=== PATIENT | male | born 1935 | race Caucasian/White ===

== ENCOUNTER → 2016-06-15 | Outpatient (CLI) | payer BC ==
[2016-06-15 13:02] LABS: ESTIMATED AVERAGE GLUCOSE 163 mg/dl; HA1C FLAG Normal (Normal)
== END | disposition home or self-care (01) ==
LOC: C.LABPVFM 10:04
PROVIDERS: ATTEND Nurse Practitioner Adult Health
DX: E10.9 Type 1 diabetes mellitus without complications (principal)

== ENCOUNTER → 2016-11-02 | Outpatient (CLI) | payer BC ==
[2016-11-02 12:31] LABS: ESTIMATED AVERAGE GLUCOSE 151 mg/dl; HA1C FLAG Normal (Normal)
[2016-11-02 13:04] LABS: RATIO 29.2 mcg/mg (0-30.0)
[2016-11-02 13:05] LABS: ALT/SGPT 24 U/L (12-78); AST/SGOT 27 U/L (15-37); BLOOD UREA NITROGEN 22 mg/dl (7-18); BUN/CREATININE RATIO 20.4 (10-20); CALCIUM 8.6 mg/dl (8.5-10.1); CARBON DIOXIDE 31 mmol/L (21-32); CHLORIDE 102 mmol/L (98-107); GLUCOSE 181 mg/dl (70-99); POTASSIUM 3.4 mmol/L (3.5-5.1); SODIUM 139 mmol/L (136-145)
[2016-11-02 13:16] LABS: ALKALINE PHOSPHATASE 66 U/L (45-117); CHOLESTEROL 132 mg/dl (0-200); CHOLESTEROL/HDL RATIO 2.3; HDL CHOLESTEROL 57 mg/dl; LDL CHOLESTEROL CALCULATED 55 mg/dl; TRIGLYCERIDES 102 mg/dl (0-150); VERY LOW DENSITY LIPOPROT CALC 20 mg/dl
== END | disposition home or self-care (01) ==
LOC: C.LABPVFM 10:14
PROVIDERS: ATTEND Nurse Practitioner Adult Health
DX: E03.9 Hypothyroidism, unspecified (principal); E10.9 Type 1 diabetes mellitus without complications; I10 Essential (primary) hypertension

== ENCOUNTER → 2016-12-16 | Outpatient (CLI) | payer BC ==
[2016-12-16 13:20] LABS: BLOOD UREA NITROGEN 18 mg/dl (7-18); BUN/CREATININE RATIO 18.2 (10-20); CALCIUM 8.9 mg/dl (8.5-10.1); CARBON DIOXIDE 31 mmol/L (21-32); CHLORIDE 100 mmol/L (98-107); GLUCOSE 259 mg/dl (70-99); POTASSIUM 3.2 mmol/L (3.5-5.1); SODIUM 139 mmol/L (136-145)
== END | disposition home or self-care (01) ==
LOC: C.LABPVFM 09:13
PROVIDERS: ATTEND Nurse Practitioner Adult Health
DX: I10 Essential (primary) hypertension (principal); E10.9 Type 1 diabetes mellitus without complications

== ENCOUNTER → 2017-01-10 | Outpatient (CLI) | payer BC ==
--- NOTE | 2017-01-10 12:37 | DIAGNOSTIC IMAGING REPORT ---
RENAL ULTRASOUND HISTORY: I10 Hypertension E10.9 Type 1 diabetes mellitus with long-term cu COMPARISON: None. FINDINGS: Right kidney: 10.7 cm. No hydronephrosis. Normal corticomedullary differentiation and cortical thickness. A 1.1 cm cyst. A 1.2 cm hyperechoic focus within the upper pole the right kidney. Left kidney: 11.3 cm. No hydronephrosis. Normal corticomedullary differentiation and cortical thickness. Bladder: Bladder wall slightly trabeculated. Bilateral ureteral jets are identified. The prostate is enlarged measuring up to 6.2 cm. IMPRESSION: 1. No hydronephrosis. 2. The bladder wall is slightly trabeculated. 3. A 1.1 cm right renal cyst. 4. A 1.2 cm hyperechoic focus within the upper pole of the right kidney. This may represent a small fat-containing lesion such as an angiomyolipoma or focal cortical scarring . 5. Prostatomegaly. Electronically signed by: Alberto Chase M.D. 01/10/2017 12:36 PM Dictated Date/Time: 01/10/2017 12:33 PM
[2017-01-10 14:52] LABS: HEMATOCRIT 40.8 % (42-52); MEAN CELL VOLUME 86.6 fL (80-100); MEAN CORPUSCULAR HEMOGLOBIN 31.2 pg (25-34); PLATELET COUNT 236 K/uL (130-400); RED BLOOD COUNT 4.71 M/uL (4.7-6.1); WHITE BLOOD COUNT 5.52 K/uL (4.8-10.8)
[2017-01-10 15:13] LABS: URINE APPEARANCE CLEAR (CLEAR); URINE BILIRUBIN NEG (NEG); URINE COLOR YELLOW; URINE EPITHELIAL CELL AUTO 0-5 /lpf (0-5); URINE NITRITE NEG (NEG); URINE PH 7.5 (4.5-7.5); URINE SPECIFIC GRAVITY 1.013 (1.000-1.030); UROBILINOGEN NEG (NEG)
[2017-01-10 15:18] LABS: MANUAL MICROSCOPIC REQUIRED? NO; REVIEW REQ? NO
[2017-01-10 15:24] LABS: BLOOD UREA NITROGEN 23 mg/dl (7-18); BUN/CREATININE RATIO 21.1 (10-20); CALCIUM 9.6 mg/dl (8.5-10.1); CARBON DIOXIDE 32 mmol/L (21-32); CHLORIDE 97 mmol/L (98-107); GLUCOSE 222 mg/dl (70-99); PHOSPHORUS 1.7 mg/dl (2.5-4.9); POTASSIUM 3.5 mmol/L (3.5-5.1); SODIUM 135 mmol/L (136-145)
[2017-01-10 15:34] LABS: URINE PROTIEN/CREAT RATIO 0.3 (0-0.2); URINE TOTAL PROTEIN 7.8 mg/dl (0-11.9)
== END | disposition home or self-care (01) ==
LOC: C.ULTR 11:56
PROVIDERS: ATTEND Internal Medicine Nephrology
DX: E10.9 Type 1 diabetes mellitus without complications (principal); E87.6 Hypokalemia; I12.9 Hypertensive chronic kidney disease with stage 1 through stage 4 chronic kidney disease, or unspecified chronic kidney disease; N18.9 Chronic kidney disease, unspecified; R80.9 Proteinuria, unspecified

== ENCOUNTER → 2017-04-12 | Outpatient (CLI) | payer BC ==
[2017-04-12 13:12] LABS: HEMOGLOBIN A1C 6.9 % (4.5-5.6)
== END | disposition home or self-care (01) ==
LOC: C.LABPVFM 10:31
PROVIDERS: ATTEND Nurse Practitioner Adult Health
DX: E03.9 Hypothyroidism, unspecified (principal); E10.29 Type 1 diabetes mellitus with other diabetic kidney complication; Z79.4 Long term (current) use of insulin; M54.9 Dorsalgia, unspecified

== ENCOUNTER → 2017-06-24 | Outpatient (CLI) | payer BC ==
[2017-06-24 12:23] LABS: HEMATOCRIT 41.3 % (42-52); HEMOGLOBIN 14.2 g/dL (14.0-18.0); MEAN CELL VOLUME 86.8 fL (80-100); MEAN CORPUSCULAR HEMOGLOBIN 29.8 pg (25-34); MEAN CORPUSCULAR HGB CONC 34.4 g/dl (32-36); MEAN PLATELET VOLUME 9.7 fL (7.4-10.4); PLATELET COUNT 245 K/uL (130-400); RED CELL DISTRIBUTION WIDTH CV 13.1 % (11.5-14.5); RED CELL DISTRIBUTION WIDTH SD 41.7 fL (36.4-46.3); WHITE BLOOD COUNT 4.52 K/uL (4.8-10.8)
[2017-06-24 13:34] LABS: ALBUMIN 3.7 gm/dl (3.4-5.0); BLOOD UREA NITROGEN 21 mg/dl (7-18); CALCIUM 8.9 mg/dl (8.5-10.1); CARBON DIOXIDE 32 mmol/L (21-32); CREATININE 1.21 mg/dl (0.60-1.40); GLUCOSE 209 mg/dl (70-99); POTASSIUM 2.8 mmol/L (3.5-5.1); SODIUM 134 mmol/L (136-145)
[2017-06-24 13:35] LABS: PHOSPHORUS 1.8 mg/dl (2.5-4.9)
== END | disposition home or self-care (01) ==
LOC: C.LABPVFM 10:41
PROVIDERS: ATTEND Internal Medicine Nephrology
DX: I10 Essential (primary) hypertension (principal); E10.29 Type 1 diabetes mellitus with other diabetic kidney complication; R60.9 Edema, unspecified; N18.9 Chronic kidney disease, unspecified; R80.9 Proteinuria, unspecified

== ENCOUNTER → 2017-08-29 | Outpatient (CLI) | payer BC ==
[2017-08-29 13:25] LABS: ALBUMIN 3.9 gm/dl (3.4-5.0); BLOOD UREA NITROGEN 23 mg/dl (7-18); CALCIUM 8.7 mg/dl (8.5-10.1); CARBON DIOXIDE 30 mmol/L (21-32); CREATININE 1.12 mg/dl (0.60-1.40); GLUCOSE 208 mg/dl (70-99); PHOSPHORUS 1.8 mg/dl (2.5-4.9); POTASSIUM 3.1 mmol/L (3.5-5.1); SODIUM 136 mmol/L (136-145)
[2017-08-29 13:54] LABS: HEMOGLOBIN A1C 6.7 % (4.5-5.6)
== END | disposition home or self-care (01) ==
LOC: C.LABPVFM 10:44
PROVIDERS: ATTEND Internal Medicine Nephrology
DX: E10.29 Type 1 diabetes mellitus with other diabetic kidney complication (principal); I10 Essential (primary) hypertension; R80.9 Proteinuria, unspecified; E87.6 Hypokalemia

== ENCOUNTER → 2017-11-29 | Outpatient (CLI) | payer BC ==
[2017-11-29 12:52] LABS: HEMATOCRIT 39.6 % (42-52); HEMOGLOBIN 13.6 g/dL (14.0-18.0); MEAN CELL VOLUME 87.8 fL (80-100); MEAN CORPUSCULAR HEMOGLOBIN 30.2 pg (25-34); MEAN CORPUSCULAR HGB CONC 34.3 g/dl (32-36); MEAN PLATELET VOLUME 10.4 fL (7.4-10.4); PLATELET COUNT 226 K/uL (130-400); RED CELL DISTRIBUTION WIDTH CV 12.9 % (11.5-14.5); RED CELL DISTRIBUTION WIDTH SD 41.5 fL (36.4-46.3); WHITE BLOOD COUNT 3.98 K/uL (4.8-10.8)
[2017-11-29 13:16] LABS: HEMOGLOBIN A1C 6.7 % (4.5-5.6)
[2017-11-29 14:22] LABS: ALBUMIN 3.7 gm/dl (3.4-5.0); BLOOD UREA NITROGEN 20 mg/dl (7-18); CALCIUM 8.7 mg/dl (8.5-10.1); CARBON DIOXIDE 29 mmol/L (21-32); CREATININE 1.11 mg/dl (0.60-1.40); GLUCOSE 294 mg/dl (70-99); PHOSPHORUS 2.1 mg/dl (2.5-4.9); POTASSIUM 3.4 mmol/L (3.5-5.1); SODIUM 135 mmol/L (136-145)
== END | disposition home or self-care (01) ==
LOC: C.LABPVFM 10:15
PROVIDERS: ATTEND Internal Medicine Nephrology
DX: I10 Essential (primary) hypertension (principal); E03.9 Hypothyroidism, unspecified; E10.29 Type 1 diabetes mellitus with other diabetic kidney complication; Z79.4 Long term (current) use of insulin; R80.9 Proteinuria, unspecified

== ENCOUNTER 2022-12-06 13:51 | Observation (INO) ==
--- NOTE | 2022-12-06 13:54 | ED Triage Note ---
Date of Service December 06, 2022 History of Present Illness This patient was briefly evaluated while in triage. An abbreviated physical exam was performed. This patient is a 87-year-old Male who presents to the ED for evaluation of chest pain. Pt. was referred from PCP at [facility] for chest pain that stared last night. Pt. reports left sided chest pain. Is still having left sided chest pain at present. Rates pain 4/10at present. Pt. states he was not doing anything when pain started. No SOB. No history of heart disease. Physical Exam VITALS: Vitals are noted on the nurse's note and reviewed by myself. GENERAL: This is an 87 year old male, in no acute distress, nondiaphoretic, well-developed well-nourished. SKIN: No obvious rashes, edema, erythema HEAD: Normocephalic atraumatic. EYES: Conjunctivae without injection, sclerae without icterus. NECK: No JVD. LUNGS: No retractions or accessory muscle use. MUSCULOSKELETAL: Normal gait. NEURO: Patient was alert and oriented to person place and time. No focal neurological deficits. Initial orders for labs and / or imaging were placed and patient was placed in the waiting area until a bed is available. Please see further documentation for the full ED course. MDM / Impression Impression Impression: Chest pain Impression: Chest pain Qualifiers: Chest pain type: unspecified Qualified Code(s): R07.9 - Chest pain, unspecified
[2022-12-06 14:26] LABS: Basophils # (auto) 0.06 K/uL (0.00-0.20); Basophils % (auto) 1.2 %; Eosinophils # (auto) 0.14 K/uL (0.00-0.50); Eosinophils % (auto) 2.9 %; Hematocrit (blood only) 39.6 % (42.0-52.0); Hemoglobin 13.9 g/dl (14.0-18.0); Immature Granulocytes # (auto) 0.01 K/uL (0.01-0.20); Immature Granulocytes % (auto) 0.2 %; Lymphocytes % (auto) 14.4 %; Mean Corpuscular Hemoglobin 30.5 pg (25.0-34.0); Mean Corpuscular Hgb Conc 35.1 g/dL (32.0-36.0); Mean Platelet Volume 9.8 fL (9.4-12.4); Monocytes # (auto) 0.35 K/uL (0.11-0.59); Monocytes % (auto) 7.2 %; Neutrophils # (auto) 3.61 K/uL (1.40-6.50); Neutrophils % (auto) 74.1 %; Platelet Count 217 K/uL (130-400); RDW Coefficient of Variation 12.9 % (11.5-14.5); RDW Standard Deviation 40.7 fL (36.4-46.3); Red Blood Count 4.55 M/uL (4.70-6.10); White Blood Count 4.87 K/ul (4.8-10.8)
[2022-12-06 14:53] LABS: Albumin Globulin Ratio 1.4 (0.9-2); Albumin Level 4.4 gm/dl (3.4-5.0); BUN Creatinine Ratio 17.7 (10-20); Bilirubin,Total 1.1 mg/dl (0.2-1.0); Calcium 9.3 mg/dl (8.6-10.3); Creatinine Clr Calc Pharmacy 51.5 ml/min; Est GFR (African American) 81.5 ml/min; Est GFR (Non-African American) 70.3 ml/min; Globulin 3.1 gm/dl (2.5-4.0); Potassium 3.9 mmol/L (3.5-5.1); Total Protein 7.5 gm/dl (6.0-8.3)
[2022-12-06 14:59] LABS: Troponin I High Sensitivity 3.8 pg/ml (0-20)
[2022-12-06 15:05] LABS: Partial Thromboplastin Time 27.9 Seconds (21.0-31.0); Prothrombin Time 10.8 Seconds (9.0-12.0)
[2022-12-06] MEDS ORDERED: ASPIRIN CHEW 324 MG ONE (15:18)
[2022-12-06] MEDS ORDERED: NITROGLYCERIN SL 0.4 MG/TAB TAB ONE (15:18)
--- NOTE | 2022-12-06 15:27 | Emergency Department Note ---
History of Present Illness General Chief Complaint: Chest Pain Stated Complaint: HEART CONCERNS, DOCTOR CALLED IN FROM [facility] Time Seen by Provider: 12/06/22 15:10 History of Present Illness Provider Complaint: chest pain Onset (ago): day(s) 1 Duration: intermittent and improved Onset: during rest Pain Location: left chest Severity: moderate Maximum Pain Intensity: 4 Current Pain Intensity: 3 Quality: + aching and + dull Relieved By: + nothing Exacerbated By: + nothing Context: no recent illness, no recent surgery, no recent immobilization, no recent travel, no trauma/injury, no new medications or no history of DVT/PE Associated symptoms: no nausea, no vomiting, no diaphoresis, no dyspnea, no syncope, no palpitations, no fever, no cough or no leg swelling Home Medications Medication Instructions Recorded Confirmed Type aspirin 81 mg tablet,delayed 81 mg PO QAM 06/21/18 12/06/22 History release (Aspir-Low) cholecalciferol (vitamin D3) 25 1,000 unit PO QAM 06/21/18 12/06/22 History mcg (1,000 unit) tablet (Vitamin D3) multivitamin with iron-mineral PO DAILY 12/25/18 12/06/22 History [Centrum] blood sugar diagnostic (Contour #[id number] ea 01/09/19 12/06/22 Rx Next Test Strips) glucagon (human recombinant) 1 mg 1 mg IM PRN PRN hypoglycemia #2 ea 01/18/19 12/06/22 Rx solution for injection (Glucagon Emergency Kit) potassium chloride 20 mEq 40 meq PO DAILY #180 tabs 01/15/20 12/06/22 Rx tablet,extended release insulin glargine 100 unit/mL See Rx Instructions .Route 12/08/20 12/06/22 Rx subcutaneous solution (Lantus .COMPLEX #10 mL U-100 Insulin) trazodone 50 mg tablet 50 mg PO HS #90 tabs 10/26/21 12/06/22 Rx dutasteride 0.5 mg capsule 0.5 mg PO DAILY #90 caps 03/16/22 12/06/22 Rx (Avodart) silodosin 8 mg capsule 8 mg PO DAILY #90 caps 03/16/22 12/06/22 Rx Novolog U-100 Insulin aspart 100 See Rx Instructions subcut DAILY 05/14/22 12/06/22 Rx unit/mL subcutaneous solution #100 mL (insulin aspart U-100) losartan 100 mg tablet 100 mg PO QAM #90 tabs 09/07/22 12/06/22 Rx hydrochlorothiazide 25 mg tablet 25 mg PO DAILY #90 tabs 10/18/22 12/06/22 Rx Synthroid 125 mcg tablet 125 mcg PO QAM 90 days #90 tabs 11/09/22 12/06/22 Rx (levothyroxine) amlodipine 5 mg tablet 10 mg PO DAILY 11/11/22 12/06/22 History Allergies Allergy/AdvReac Type Severity Reaction Status Date / Time clonazepam Allergy Intermediate NAUSEA,HYPE Verified 12/06/22 12:35 R hydrocodone Allergy Mild NAUSEA Verified 12/06/22 12:35 DEMEROL Allergy Intermediate Hives Uncoded 12/06/22 12:35 Past Med/Surg History Medical History (Updated 12/06/22 @ 23:34 by Brent Hernandez MD) BPH with obstruction/lower urinary tract symptoms Cervicalgia Edema History of flexible sigmoidoscopy Hypokalemia Insomnia Insulin pump in place Macular degeneration LASER INJECTIONS Peripheral neuropathy Positive colorectal cancer screening using Cologuard test SNHL (sensorineural hearing loss) Surgical History Cornea transplant recipient RT/LEFT H/O hemorrhoidectomy AND FISSURE REPAIR History of tonsillectomy History of tooth extraction Hx of prostate biopsy BENIGN Family History Brother Family history of diabetes mellitus Mother Family history of diabetes mellitus Denies family history of Ovarian cancer Prostate cancer Myocardial infarction Breast cancer Colorectal cancer Social History Smoking Status: Former smoker Tobacco Type: Cigarettes Smoking End Date: 1964; Second Hand Exposure: No; Do You Dip or Chew Tobacco: Yes (OCCASIONAL USE); Hx Alcohol Use: No Hx Substance Use: No Preferred Language: Tajik Communication Ability: Effective Visual Impairment: Limited Hearing Ability: Use of Hearing Aid Lining Vamper Required: No Beliefs That Will Affect Care: None marital status: Current Living Situation: Spouse Current Living Situation Comment: [facility]ry current occupational status: retired How many Children do You have: 3 Feels Safe at Home: Yes Safety Concerns: Feels Safe At This Time Childhood Exposure to Second-Hand Smoke: No Diet: regular caffeine: Yes during the past year weight has: remained stable Dental Care, Regularly: Yes Physical Activity Frequency: Does not Exercise Seatbelt Use: always Sunscreen Use: Yes Assistive Devices: Denture - Upper, Denture - Lower, Glasses and Hearing Aid - Bilateral Physical Exam Vital Signs Vital Signs - 24 hr 12/06/22 13:52 12/06/22 15:56 12/06/22 15:56 Temperature 36.6 C Temperature Source Oral Pulse Rate 73 Pulse Rate [Apical] 59 L Pulse Rhythm [Apical] Regular Pulse Strength [Apical] Normal Respiratory Rate 18 16 Respiratory Effort / Characteristics Non-Labored Respiratory Depth Normal Respiratory Pattern Regular Blood Pressure 207/90 H Blood Pressure [Left Arm] 166/76 H Blood Pressure Mean 129 Blood Pressure Mean [Left Arm] 106 Pulse Oximetry 99 100 Oxygen Delivery Method Room Air Room Air Room Air Sepsis Recent Fever Within 48 Hours No Sepsis New/Unexplained Change in Mental Status No Sepsis Action Taken by Nursing No Action Required 12/06/22 15:56 12/06/22 15:28 Temperature Temperature Source Pulse Rate 66 Pulse Rate [Apical] Pulse Rhythm [Apical] Pulse Strength [Apical] Respiratory Rate Respiratory Effort / Characteristics Respiratory Depth Respiratory Pattern Blood Pressure Blood Pressure [Left Arm] Blood Pressure Mean Blood Pressure Mean [Left Arm] Pulse Oximetry 99 Oxygen Delivery Method Room Air Sepsis Recent Fever Within 48 Hours Sepsis New/Unexplained Change in Mental Status Sepsis Action Taken by Nursing Physical Exam GENERAL: oriented to person, place, and time. appears well-developed and well- nourished. HENT: Exam performed. - Head: Normocephalic and atraumatic. EYES: Conjunctivae and EOM are normal. Right eye exhibits no discharge. Left eye exhibits no discharge. No scleral icterus. NECK: Normal range of motion. Neck supple. No JVD present. CV: Normal rate, regular rhythm, normal heart sounds and intact distal pulses. There is no peripheral edema. Palpable radial pulses bue. PULM/CHEST: Effort normal and breath sounds normal. No respiratory distress. No stridor. no wheezes. no rales. ABD: The abdomen is soft. There is no tenderness. NEURO: Motor and sensation grossly intact. SKIN: Skin is warm and dry. He is not diaphoretic. PSYCH: normal mood and affect. Behavior is normal. Judgment and thought content normal. Course Course 1510: The patient was evaluated in room A4. A complete history and physical exam was performed Administered Medications Polyethylene Glycol (Polyethylene (Miralax) 17 Gm Pack) 17 gm PO DAILY JAYDE Stop: 01/05/23 16:52 Last Admin: 12/06/22 18:25 Dose: 17 gm Documented By: SKYLER Senna/Docusate Sodium (Docusate Sodium/Senna 50/8.6mg Tab) 1 tab PO QAM JAYDE Stop: 01/05/23 16:52 Last Admin: 12/06/22 18:25 Dose: 1 tab Documented By: SKYLER Discontinued Medications Al Hydrox/Mg Hydrox/Simethicone (Aluminum/Magnesium Susp 30 Ml Udc) 15 ml PO NOW STA Stop: 12/06/22 16:07 Last Admin: 12/06/22 17:05 Dose: 15 ml Documented By: SKYLER Aspirin (Aspirin Chew 324 Mg) Confirm Administered Dose 324 mg .ROUTE .STK-MED ONE Stop: 12/06/22 15:19 Last Admin: 12/06/22 15:22 Dose: Not Given Documented By: DONAL Famotidine 20 mg/ Syringe 5 mls @ 2.5 mls/min IV NOW ONE Stop: 12/06/22 17:31 Last Admin: 12/06/22 18:25 Dose: 2.5 mls/min Documented By: SKYLER Nitroglycerin (Nitroglycerin Sl 0.4 Mg/Tab Tab) Confirm Administered Dose 0.4 mg .ROUTE .STK-MED ONE Stop: 12/06/22 15:19 Last Admin: 12/06/22 15:19 Dose: 0.4 mg Documented By: DONAL Medical Decision Making Laboratory Data Attestation: I reviewed the patient's lab results. 12/06/22 14:04 12/06/22 14:04 Labs: Lab Results 12/06/22 12/06/22 12/06/22 Range/Units 14:04 14:04 14:04 WBC 4.87 (4.8-10.8) K/ul RBC 4.55 L (4.70-6.10) M/uL Hgb 13.9 L (14.0-18.0) g/dl Hct 39.6 L (42.0-52.0) % MCV 87.0 (80.0-100.0) fL MCH 30.5 (25.0-34.0) pg MCHC 35.1 (32.0-36.0) g/dL RDW Std Deviation 40.7 (36.4-46.3) fL RDW Coeff of Kyle 12.9 (11.5-14.5) % Plt Count 217 (130-400) K/uL MPV 9.8 (9.4-12.4) fL Immature Gran % (Auto) 0.2 % Neut % (Auto) 74.1 % Lymph % (Auto) 14.4 % [place] % (Auto) 7.2 % Eos % (Auto) 2.9 % Baso % (Auto) 1.2 % Neut # (Auto) 3.61 (1.40-6.50) K/uL Lymph # (Auto) 0.70 L (1.20-3.40) K/uL [place] # (Auto) 0.35 (0.11-0.59) K/uL Eos # (Auto) 0.14 (0.00-0.50) K/uL Baso # (Auto) 0.06 (0.00-0.20) K/uL Immature Gran # (Auto) 0.01 (0.01-0.20) K/uL PT 10.8 (9.0-12.0) Seconds INR 1.0 (0.9-1.1) APTT 27.9 (21.0-31.0) Seconds PTT Ratio 1.0 Sodium 138 (136-145) mmol/L Potassium 3.9 (3.5-5.1) mmol/L Chloride 103 (98-107) mmol/L Carbon Dioxide 26 (21-32) mmol/L Anion Gap 9 (3-11) BUN 17 (6-23) mg/dl Creatinine 0.96 (0.6-1.4) mg/dl Est Cr Clr Drug Dosing 51.5 ml/min Est GFR ( Amer) 81.5 ml/min Est GFR (Non-Af Amer) 70.3 ml/min BUN/Creatinine Ratio 17.7 (10-20) Glucose 220 H (70-99(Fasting)) mg/dl Calcium 9.3 (8.6-10.3) mg/dl Total Bilirubin 1.1 H (0.2-1.0) mg/dl AST 23 (13-39) U/L ALT 14 (7-52) U/L Alkaline Phosphatase 72 (34-104) U/L Troponin I High Sens 3.8 (0-20) pg/ml Total Protein 7.5 (6.0-8.3) gm/dl Albumin 4.4 (3.4-5.0) gm/dl Globulin 3.1 (2.5-4.0) gm/dl Albumin/Globulin Ratio 1.4 (0.9-2) Lipase 6 L (11-82) U/L TSH (0.300-4.500) uIu/ml Free T3 (2.3-4.2) pg/ml 12/06/22 12/06/22 Range/Units 14:04 14:04 WBC (4.8-10.8) K/ul RBC (4.70-6.10) M/uL Hgb (14.0-18.0) g/dl Hct (42.0-52.0) % MCV (80.0-100.0) fL MCH (25.0-34.0) pg MCHC (32.0-36.0) g/dL RDW Std Deviation (36.4-46.3) fL RDW Coeff of Kyle (11.5-14.5) % Plt Count (130-400) K/uL MPV (9.4-12.4) fL Immature Gran % (Auto) % Neut % (Auto) % Lymph % (Auto) % [place] % (Auto) % Eos % (Auto) % Baso % (Auto) % Neut # (Auto) (1.40-6.50) K/uL Lymph # (Auto) (1.20-3.40) K/uL [place] # (Auto) (0.11-0.59) K/uL Eos # (Auto) (0.00-0.50) K/uL Baso # (Auto) (0.00-0.20) K/uL Immature Gran # (Auto) (0.01-0.20) K/uL PT (9.0-12.0) Seconds INR (0.9-1.1) APTT (21.0-31.0) Seconds PTT Ratio Sodium (136-145) mmol/L Potassium (3.5-5.1) mmol/L Chloride (98-107) mmol/L Carbon Dioxide (21-32) mmol/L Anion Gap (3-11) BUN (6-23) mg/dl Creatinine (0.6-1.4) mg/dl Est Cr Clr Drug Dosing ml/min Est GFR ( Amer) ml/min Est GFR (Non-Af Amer) ml/min BUN/Creatinine Ratio (10-20) Glucose (70-99(Fasting)) mg/dl Calcium (8.6-10.3) mg/dl Total Bilirubin (0.2-1.0) mg/dl AST (13-39) U/L ALT (7-52) U/L Alkaline Phosphatase (34-104) U/L Troponin I High Sens (0-20) pg/ml Total Protein (6.0-8.3) gm/dl Albumin (3.4-5.0) gm/dl Globulin (2.5-4.0) gm/dl Albumin/Globulin Ratio (0.9-2) Lipase (11-82) U/L TSH 1.543 (0.300-4.500) uIu/ml Free T3 2.57 (2.3-4.2) pg/ml Imaging Data Chest x-ray: Attestation: I personally reviewed and interpreted this imaging study as follows: My impression: Chest x-ray negative. Airway clear. No pneumothorax. No consolidation. No cardiomegaly or cephalization.. No free air under the diaphragm. No fractures of the skeletal structures. Radiologist's impression: Chest X-Ray 12/06/22 13:54 XR chest 1V portable CLINICAL HISTORY: Chest pain, nonspecific COMPARISON STUDY: Chest radiograph August 03, 2022. FINDINGS: Lung volumes are normal. Lungs are clear. There is no pneumothorax or pleural effusion. Cardiac size is normal. Mediastinal contours are normal. There is no evidence for pulmonary edema. IMPRESSION: No acute cardiopulmonary findings. ACT 112: Negative or not required by law. Electronically signed by: Gerardo Davis M.D. 12/06/2022 3:52 PM ECG Data Attestation: I personally reviewed and interpreted this ECG as follows: Indication: chest pain Rate (beats per minute): 71 Rhythm: normal sinus Findings: no ST depression, no ST elevation or no prolonged QT MDM Narrative Cardiac monitoring: An order was placed for continuous cardiac monitoring. The monitor shows a rate of 70 with sinus rhythm interpreted by me Patient was seen during a time of extreme volume and extreme acuity in the emergency department. Nursing triage protocols were initiated and labs were drawn by protocol in the triage area. Labs and imaging within normal limits Patient will be admitted for chest pain rule out ACS Impression & Plan Chest pain Discharge Plan Visit Data Chief Complaint: Chest Pain Stated Complaint: HEART CONCERNS, DOCTOR CALLED IN FROM [facility] ED Provider: Brent Hernandez Discharge Problem: Chest pain Patient Disposition: Admitted As Inpatient Discharge Instructions Interventions: ED Discharge Assessment Last Done: 12/06/22 16:53
--- NOTE | 2022-12-06 15:54 | XRay Report ---
XR chest 1V portable CLINICAL HISTORY: Chest pain, nonspecific COMPARISON STUDY: Chest radiograph August 03, 2022. FINDINGS: Lung volumes are normal. Lungs are clear. There is no pneumothorax or pleural effusion. Car diac size is normal. Mediastinal contours are normal. There is no evidence for pulmonary edema. IMPRESSION: No acute cardiopulmonary findings. ACT 112: Negative or not required by law. Electronically signed by: Gerardo Davis M.D. 12/06/2022 3:52 PM
[2022-12-06] MEDS ORDERED: hydrALAZINE HCL 20 MG/ML VIAL IV PRN (15:56)
--- NOTE | 2022-12-06 15:57 | History & Physical Report ---
Date of Service December 06, 2022 Assessment & Plan (1) Chest pain: Plan: Reports CP since last evening. Trop negative. EKG w/o ST depression/elevation, does note possible old infarct. DDx underlying CAD/angina vs HTN, cannot r/o anxiety component as now caring for his (dementia) Given 324mg ASA by PCP office before arriving to hospital, continue ASA 81mg daily Trop 3.8 on initial lab draw, trend ECHO to be obtained Nitro SL prn EKG w/ CP BP management Hydralazine added prn Lipid panel/A1c w/ AM labs TSH previously normal but elevated T4. Will repeat TSH/T4/T3 for further eval/adjustment as needed GI cocktail x1, place on scheduled pepcid -- monitor response Also reporting constipation/gas pains, will check KUB (+BS on exam) Fine crackles b/l, check covid/flu/rsv (already had covid, vaccinated and boosted, denies recent contacts/fever/chills) Heparin SQ for DVT prophylaxis Labs in AM If repeat trop again negative, will make NPO at midnight/stress testing for AM (2) Hypertension: Plan: Elevated on arrival, up to 200s/90, currently 166/76 Continue on losartan 100mg daily, amlodipine 10mg daily for now Was recently taken off his HCTZ due to persistent hypokalemia despite r eplacement (up to 2-3 20meq replacement w/ such) -Will add renin/blayne to labs to rule out other cause for HTN given hypokalemia ?primary aldosteronism -Pending, consider utilizing spironolactone for BP control Hydralazine available prn Monitor BP (3) 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, with long-term current use of insulin: Plan: A1c w/ AM labs as above, most recent value 7.1 Glu 220 on arrival Has insulin pump, BSG AC/HS ordered , can continue home insulin pump for now but if remains elevated will need to stop/utilize SSI while inpatient DM diet (4) Hypothyroidism: Plan: Most recent TSH wnl at 1.5, however appears T4 was elevated 1.5 Continue Synthroid 125mcg for now Will repeat TSH/T4/T3 for further eval (5) Depression with anxiety: Plan: not on SSRI, suspect would benefit on trazodone at night for sleep, continued (6) Lump of skin of right upper extremity: Plan: noted reason for visit to PCP this morning US for further eval, appears spontaneous biceps tendon rupture. Can reach out to ortho pending US but suspect nothing to do give age/etc but can reach out to technical support professional to discuss (7) Constipation: Plan: KUB as above to eval constipation given reported issues miralax, senna/docusate, monitor for BM (8) Insulin pump in place: Plan: noted, in place History of Present Illness Chief Complaint: chest pain Primary Care Provider: ELBA Wright 87yo male with PMHx significant for DM I (on insulin pump), HTN, Hypothyroidism, CKD, depression/anxiety presented for complaints of chest pain/L arm pain that started last evening. Patient evaluated in A4B, son at bedside. Reports having this similar pain reporting feeling like indigestion/gas discomfort that goes away typically on it's own, occasional similar symptoms 2-3x/year.. He reports this discomfort had been ongoing and not relieved since this morning when he really noticed it causing discomfort. He describes it has a "dull ache" to his L chest/pressure like sensation. He notes he took his typical aspirin 81mg this morning and was provided 4 baby aspirin by PCP this morning during visit when noting BP elevation and discussed if symptomatic from such, with patient reporting having chest discomfort and recommended he come to the ER. Son reports he came to pick him up and bring him over. Regarding prior indigestion symptoms, he denies being on any scheduled acid reducing medication/similar. BP improved from max 207/90 to 166/76 presently. Had his HCTZ discontinued recently due to persistent hypokalemia but reports continues on losartan/amlodipine. Some issues with constipation, reports not passing much gas. Does have +BS on exam. Also noting lump to his RUE, no erythema/warmth or trauma and states he just noticed it. Appears w/ possible biceps tendon rupture. He reports this is the reason he went to PCP in the first place. Typically a pretty active leticia at baseline. No cardiac history Appears patient also newly taking care of his /caregiver 2nd to dementia over the past several months. Have been ?61 years, he does note that this has been an increase stress on him. EKG w/ NSR (sinus lilli on exam), LAD, does note Q wave septal leads c/w prior event. CXR w/ no acute process noted (fine crackles b/l on exam) No fever/chills, shortness of breath, nausea/vomiting. Hx COVID in 2021, has been vaccinated/boosted. Discussed admission for cardiac work-up/ECHO, trending of troponin. Full code. Allergies Allergy/AdvReac Type Severity Reaction Status Date / Time clonazepam Allergy Intermediate NAUSEA,HYPE Verified 12/06/22 12:35 R hydrocodone Allergy Mild NAUSEA Verified 12/06/22 12:35 DEMEROL Allergy Intermediate Hives Uncoded 12/06/22 12:35 Home Medications Medication Instructions Recorded Confirmed Type aspirin 81 mg tablet,delayed 81 mg PO QAM 06/21/18 12/06/22 History release (Aspir-Low) cholecalciferol (vitamin D3) 25 1,000 unit PO QAM 06/21/18 12/06/22 History mcg (1,000 unit) tablet (Vitamin D3) multivitamin with iron-mineral PO DAILY 12/25/18 12/06/22 History [Centrum] blood sugar diagnostic (Contour #[id number] ea 01/09/19 12/06/22 Rx Next Test Strips) glucagon (human recombinant) 1 mg 1 mg IM PRN PRN hypoglycemia #2 ea 01/18/19 12/06/22 Rx solution for injection (Glucagon Emergency Kit) potassium chloride 20 mEq 40 meq PO DAILY #180 tabs 01/15/20 12/06/22 Rx tablet,extended release insulin glargine 100 unit/mL See Rx Instructions .Route 12/08/20 12/06/22 Rx subcutaneous solution (Lantus .COMPLEX #10 mL U-100 Insulin) trazodone 50 mg tablet 50 mg PO HS #90 tabs 10/26/21 12/06/22 Rx dutasteride 0.5 mg capsule 0.5 mg PO DAILY #90 caps 03/16/22 12/06/22 Rx (Avodart) silodosin 8 mg capsule 8 mg PO DAILY #90 caps 03/16/22 12/06/22 Rx Novolog U-100 Insulin aspart 100 See Rx Instructions subcut DAILY 05/14/22 12/06/22 Rx unit/mL subcutaneous solution #100 mL (insulin aspart U-100) losartan 100 mg tablet 100 mg PO QAM #90 tabs 09/07/22 12/06/22 Rx hydrochlorothiazide 25 mg tablet 25 mg PO DAILY #90 tabs 10/18/22 12/06/22 Rx Synthroid 125 mcg tablet 125 mcg PO QAM 90 days #90 tabs 11/09/22 12/06/22 Rx (levothyroxine) amlodipine 5 mg tablet 10 mg PO DAILY 11/11/22 12/06/22 History Past Med/Surg History Medical History (Updated 12/06/22 @ 23:34 by Brent Hernandez MD) BPH with obstruction/lower urinary tract symptoms Cervicalgia Edema History of flexible sigmoidoscopy Hypokalemia Insomnia Insulin pump in place Macular degeneration LASER INJECTIONS Peripheral neuropathy Positive colorectal cancer screening using Cologuard test SNHL (sensorineural hearing loss) Surgical History Cornea transplant recipient RT/LEFT H/O hemorrhoidectomy AND FISSURE REPAIR History of tonsillectomy History of tooth extraction Hx of prostate biopsy BENIGN Family History Brother Family history of diabetes mellitus Mother Family history of diabetes mellitus Denies family history of Ovarian cancer Prostate cancer Myocardial infarction Breast cancer Colorectal cancer Social History Smoking Status: Former smoker Tobacco Type: Cigarettes Smoking End Date: 1964; Second Hand Exposure: No; Do You Dip or Chew Tobacco: Yes (OCCASIONAL USE); Hx Alcohol Use: No Hx Substance Use: No Preferred Language: Italian Communication Ability: Effective Visual Impairment: Limited Hearing Ability: Use of Hearing Aid 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 Required: No Beliefs That Will Affect Care: None marital status: Current Living Situation: Spouse Current Living Situation Comment: [facility] current occupational status: retired How many Children do You have: 3 Feels Safe at Home: Yes Safety Concerns: Feels Safe At This Time Childhood Exposure to Second-Hand Smoke: No Diet: regular caffeine: Yes during the past year weight has: remained stable Dental Care, Regularly: Yes Physical Activity Frequency: Does not Exercise Seatbelt Use: always Sunscreen Use: Yes Assistive Devices: Denture - Upper, Denture - Lower, Glasses and Hearing Aid - Bilateral Review of Systems Review of Systems: All systems reviewed & are unremarkable except as noted in HPI & below Physical Exam Physical Exam: General: WD/WN male sitting up in bed, no acute distress, son at bedside. HEENT: head normocephalic, atraumatic, mmm, trachea midline Resp: fine crackles bilaterally, wheezing/rales, on room air, no tachypnea CV: RRR (sinus rhythm/sinus lilli on monitor), no significant m/r/g, no pitting edema/calf tenderness GI: +BS, slight distention, nontender/no guarding/rigidity : no rosario MSK/Neuro: no focal deficits, no slurred speech/facial droop RUE w/ lump, no erythema/warmth or tenderness Psych: AOx3, cooperative and pleasant during encounter Results & Data Results & Data Vital Signs (Past 12 Hours) Vital Signs Temp Pulse Resp BP Pulse Ox O2 Del Method 12/06/22 13:52 36.6 C 73 18 207/90 H 99 Room Air Laboratory Results 12/06/22 12/06/22 12/06/22 Range/Units 14:04 14:04 14:04 WBC (4.8-10.8) K/ul RBC (4.70-6.10) M/uL Hgb (14.0-18.0) g/dl Hct (42.0-52.0) % MCV (80.0-100.0) fL MCH (25.0-34.0) pg MCHC (32.0-36.0) g/dL RDW Std Deviation (36.4-46.3) fL RDW Coeff of Kyle (11.5-14.5) % Plt Count (130-400) K/uL MPV (9.4-12.4) fL Immature Gran % (Auto) % Neut % (Auto) % Lymph % (Auto) % Bertie % (Auto) % Eos % (Auto) % Baso % (Auto) % Neut # (Auto) (1.40-6.50) K/uL Lymph # (Auto) (1.20-3.40) K/uL Bertie # (Auto) (0.11-0.59) K/uL Eos # (Auto) (0.00-0.50) K/uL Baso # (Auto) (0.00-0.20) K/uL Immature Gran # (Auto) (0.01-0.20) K/uL PT (9.0-12.0) Seconds INR (0.9-1.1) APTT (21.0-31.0) Seconds PTT Ratio Sodium 138 (136-145) mmol/L Potassium 3.9 (3.5-5.1) mmol/L Chloride 103 (98-107) mmol/L Carbon Dioxide 26 (21-32) mmol/L Anion Gap 9 (3-11) BUN 17 (6-23) mg/dl Creatinine 0.96 (0.6-1.4) mg/dl Est Cr Clr Drug Dosing 51.5 ml/min Est GFR ( Amer) 81.5 ml/min Est GFR (Non-Af Amer) 70.3 ml/min BUN/Creatinine Ratio 17.7 (10-20) Glucose 220 H (70-99(Fasting)) mg/dl Calcium 9.3 (8.6-10.3) mg/dl Total Bilirubin 1.1 H (0.2-1.0) mg/dl AST 23 (13-39) U/L ALT 14 (7-52) U/L Alkaline Phosphatase 72 (34-104) U/L Troponin I High Sens 3.8 (0-20) pg/ml Total Protein 7.5 (6.0-8.3) gm/dl Albumin 4.4 (3.4-5.0) gm/dl Globulin 3.1 (2.5-4.0) gm/dl Albumin/Globulin Ratio 1.4 (0.9-2) Lipase 6 L (11-82) U/L TSH Pending Free T3 Pending 12/06/22 12/06/22 Range/Units 14:04 14:04 WBC 4.87 (4.8-10.8) K/ul RBC 4.55 L (4.70-6.10) M/uL Hgb 13.9 L (14.0-18.0) g/dl Hct 39.6 L (42.0-52.0) % MCV 87.0 (80.0-100.0) fL MCH 30.5 (25.0-34.0) pg MCHC 35.1 (32.0-36.0) g/dL RDW Std Deviation 40.7 (36.4-46.3) fL RDW Coeff of Kyle 12.9 (11.5-14.5) % Plt Count 217 (130-400) K/uL MPV 9.8 (9.4-12.4) fL Immature Gran % (Auto) 0.2 % Neut % (Auto) 74.1 % Lymph % (Auto) 14.4 % Bertie % (Auto) 7.2 % Eos % (Auto) 2.9 % Baso % (Auto) 1.2 % Neut # (Auto) 3.61 (1.40-6.50) K/uL Lymph # (Auto) 0.70 L (1.20-3.40) K/uL Bertie # (Auto) 0.35 (0.11-0.59) K/uL Eos # (Auto) 0.14 (0.00-0.50) K/uL Baso # (Auto) 0.06 (0.00-0.20) K/uL Immature Gran # (Auto) 0.01 (0.01-0.20) K/uL PT 10.8 (9.0-12.0) Seconds INR 1.0 (0.9-1.1) APTT 27.9 (21.0-31.0) Seconds PTT Ratio 1.0 Sodium (136-145) mmol/L Potassium (3.5-5.1) mmol/L Chloride (98-107) mmol/L Carbon Dioxide (21-32) mmol/L Anion Gap (3-11) BUN (6-23) mg/dl Creatinine (0.6-1.4) mg/dl Est Cr Clr Drug Dosing ml/min Est GFR ( Amer) ml/min Est GFR (Non-Af Amer) ml/min BUN/Creatinine Ratio (10-20) Glucose (70-99(Fasting)) mg/dl Calcium (8.6-10.3) mg/dl Total Bilirubin (0.2-1.0) mg/dl AST (13-39) U/L ALT (7-52) U/L Alkaline Phosphatase (34-104) U/L Troponin I High Sens (0-20) pg/ml Total Protein (6.0-8.3) gm/dl Albumin (3.4-5.0) gm/dl Globulin (2.5-4.0) gm/dl Albumin/Globulin Ratio (0.9-2) Lipase (11-82) U/L TSH Free T3 Diagnostic Findings Chest X-Ray 12/06/22 13:54 XR chest 1V portable CLINICAL HISTORY: Chest pain, nonspecific COMPARISON STUDY: Chest radiograph August 03, 2022. FINDINGS: Lung volumes are normal. Lungs are clear. There is no pneumothorax or pleural effusion. Cardiac size is normal. Mediastinal contours are normal. There is no evidence for pulmonary edema. IMPRESSION: No acute cardiopulmonary findings. ACT 112: Negative or not required by law. Electronically signed by: Gerardo Davis M.D. 12/06/2022 3:52 PM Supervising Physician Co-Signing Physician Notes I personally saw and examined the patient. I verified all blakely points and agree with Jennifer Robison PA-C with the following exceptions and/or additions: 87 year old male presents to the ER from PCP office with chest pain. Non exertional. Radiates to left arm. Main complaint to PCP was lump over right biceps. O/E HS RRR, no murmurs, Chest CTAB, Abdo SNT, 5/5 elbow flexion b/l with intact biceps tendon A/P Chest pain - serial troponins overnight with stress test tomorrow if negative. ?due to hypertension - would avoid any additional medication currently and monitor serial measurements with his usual anti-hypertensives. Agree considering spironolactone given problems with hypokalemia with HCTZ if he does require something extra. Right arm lump - this appears to just be his biceps, biceps tendon appears intact on examination, will get US soft tissue of the area in question. Possible just strained his muscle. 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
[2022-12-06] MEDS ORDERED: ALUMINUM/MAGNESIUM SUSP 30 ML UDC PO STA (16:06)
[2022-12-06] MEDS ORDERED: PHARMACY GLYCEMIC MGMT CONSULT PRN (16:53)
[2022-12-06] MEDS ORDERED: NITROGLYCERIN SL 0.4 MG/TAB TAB SL PRN (16:53)
[2022-12-06] MEDS ORDERED: ACETAMINOPHEN 325 MG TAB PO PRN (16:53)
[2022-12-06] MEDS ORDERED: LANTUS PER UNIT CHARGE SC SCH (16:53)
[2022-12-06] MEDS ORDERED: ONDANSETRON INJ 2 MG/ML 2 ML VIAL IV PRN (16:53)
[2022-12-06] MEDS ORDERED: FAMOTIDINE 20 MG in SYRINGE 3 ML IV ONE (17:30)
[2022-12-06 17:57] LABS: Influenza A virus by PCR Negative (Neg); Influenza B virus by PCR Negative (Neg); RSV by PCR Negative (Neg); SARS CoV2 RNA(COVID-19) Ceph NEGATIVE (Negative)
[2022-12-06] MEDS: DOCUSATE SODIUM/SENNA 50/8.6MG TAB PO SCH (18:25)
[2022-12-06] MEDS: POLYETHYLENE (MIRALAX) 17 GM PACK PO SCH (18:25)
--- NOTE | 2022-12-06 18:57 | XRay Report ---
XR KUB/Abdomen 1 view CLINICAL HISTORY: eval constipation TECHNIQUE: 1 view of the abdomen was obtained. Comparison: Comparison is made to abdomen radiograph 08/10/2022 FINDINGS: Lung bases are unremarkable. Degenerative changes are seen in the visualized skeleton. The bowel gas pattern is nonobstructive. A moderate amount of stool is noted within the large bowel. IMPRESSION: Moderate stool burden without evidence of fecal impaction. ACT 112: Negative or not required by law. Electronically signed by: Ruel Patel M.D. 12/06/2022 6:56 PM
[2022-12-06] MEDS ORDERED: DEXTROSE 50% 50 ML SYRINGE IV PRN (20:00)
[2022-12-06] MEDS ORDERED: CARBOHYDRATES FOR HYPOGLYCEMIA PO PRN (20:00)
[2022-12-06] MEDS ORDERED: INSULIN ASPART 100 UNITS/ML VIAL SC PRN (20:00)
[2022-12-06] MEDS ORDERED: GLUCAGON FOR INJ 1 MG VIAL IM PRN (20:00)
[2022-12-06] MEDS ORDERED: GLUCOSE 40% GEL 15 GM TUBE PO PRN (20:00)
[2022-12-06] MEDS ORDERED: GLUCOSE 10 TAB/TUBE PO PRN (20:00)
[2022-12-06] MEDS ORDERED: traZODone HCL 50 MG TAB PO SCH (21:00)
[2022-12-06] MEDS ORDERED: INSULIN, Rapid-Acting PUMP SCH (21:00)
[2022-12-07] MEDS: HEPARIN SOD 5,000 UNIT/0.5 ML VIAL SQ SCH ×2 (00:17→10:58)
[2022-12-07] MEDS ORDERED: LANTUS PER UNIT CHARGE SC ONE ×2 (04:00→09:00)
[2022-12-07] MEDS: INSULIN ASPART PER UNIT CHARGE SC SCH ×3 (04:19→12:39)
[2022-12-07] MEDS ORDERED: LEVOTHYROXINE SODIUM 125 MCG TABLET PO SCH (06:30)
--- NOTE | 2022-12-07 07:35 | Ultrasound Report ---
US soft tissue ext ltd CLINICAL HISTORY: right upper arm, ?biceps rupture TECHNIQUE: Real-time grayscale sonographic images of the right biceps were obtained. Comparison: None available at the time of this dictation. FINDINGS/IMPRESSION: No acute abnormality is seen within the visualized region. ACT 112: Negative or not required by law. Electronically signed by: Ruel Patel M.D. 12/07/2022 7:33 AM
[2022-12-07 07:48] LABS: Hemoglobin 13.3 g/dl (14.0-18.0); Mean Corpuscular Hemoglobin 30.6 pg (25.0-34.0); Mean Corpuscular Volume 87.6 fL (80.0-100.0); Mean Platelet Volume 9.8 fL (9.4-12.4); Platelet Count 202 K/uL (130-400); RDW Coefficient of Variation 12.9 % (11.5-14.5); RDW Standard Deviation 40.9 fL (36.4-46.3); Red Blood Count 4.34 M/uL (4.70-6.10); White Blood Count 5.84 K/ul (4.8-10.8)
[2022-12-07 08:14] LABS: Albumin Globulin Ratio 1.5 (0.9-2); Albumin Level 4.1 gm/dl (3.4-5.0); BUN Creatinine Ratio 18.6 (10-20); Bilirubin,Total 1.6 mg/dl (0.2-1.0); Calcium 8.9 mg/dl (8.6-10.3); Chol HDL Ratio 2.3 (0-5); Creatinine Clr Calc Pharmacy 50.9 ml/min; Est GFR (African American) 80.5 ml/min; Est GFR (Non-African American) 69.4 ml/min; Globulin 2.8 gm/dl (2.5-4.0); Magnesium 2.1 mg/dl (1.7-2.4); Total Protein 6.9 gm/dl (6.0-8.3)
[2022-12-07 08:16] LABS: Estimated Average Glucose 148 mg/dl; Hemoglobin A1C 6.8 % (4.5-5.6)
[2022-12-07] MEDS ORDERED: ASPIRIN 81 MG ECTAB PO SCH (09:00)
[2022-12-07] MEDS ORDERED: TAMSULOSIN HCL 0.4 MG CAP PO SCH (09:00)
[2022-12-07] MEDS ORDERED: FAMOTIDINE 20 MG in SYRINGE 3 ML IV SCH (09:00)
[2022-12-07] MEDS ORDERED: LOSARTAN POTASSIUM 50 MG TAB PO SCH (09:00)
[2022-12-07] MEDS ORDERED: CHOLECALCIFEROL 1,000 UNITS 25 MCG TAB PO SCH (09:00)
[2022-12-07] MEDS ORDERED: FINASTERIDE 5 MG TAB PO SCH (09:00)
[2022-12-07] MEDS ORDERED: amLODIPine BESYLATE 5 MG TAB PO SCH (09:00)
[2022-12-07] MEDS ORDERED: ATROPINE SULFATE 0.1 MG/ML 10ML SYR IV ONE (09:48)
[2022-12-07] MEDS ORDERED: METOPROLOL TARTRATE 1 MG/ML VIAL IV ONE (09:48)
[2022-12-07] MEDS ORDERED: DOBUTamine HCL 12.5 MG/ML 20 ML VIAL IV ONE (09:48)
--- NOTE | 2022-12-07 10:56 | XCELERA ---
[id number] \\[email or web address]_[email or web address]\[id number]___[id number]
[2022-12-07] MEDS: POLYETHYLENE (MIRALAX) 17 GM PACK PO SCH (10:59)
[2022-12-07] MEDS: DOCUSATE SODIUM/SENNA 50/8.6MG TAB PO SCH (11:04)
--- NOTE | 2022-12-07 11:14 | XCELERA ---
[id number] \\[email or web address]_PDF_[email or web address]\[id number]___[id number]
--- NOTE | 2022-12-07 12:24 | Pharmacy Report ---
Pharmacy Glycemic Short Note 2 - Date of Service December 07, 2022 - Glycemic Short BSG Results (Last 24 hours): 12/06/22 12/06/22 12/06/22 14:04 20:50 21:29 Glucose 220 H POC Glucose 165 H 136 H 12/07/22 12/07/22 12/07/22 04:13 07:22 08:11 Glucose 184 H POC Glucose 238 H 234 H 12/07/22 12/07/22 09:19 11:51 Glucose POC Glucose 252 H 171 H OUTPATIENT ANTIDIABETIC REGIMEN: * Novolog pump 16 units per day * CF 25 CR 8 or 9 * HbA1C = 7.1% (10/14/22) ASSESSMENT: * Mr Sosa is an 87 y/o M with a PMH of T1DM who presents with chest pain. His insulin pump was disconnected in the middle of the night. * Stat dose of Lantus 10 units x 1 given (~0400). Will give additional 6 units (for total daily dose of 16 units) x 1. Re-evaluate 12/08/22. * Novolog similar to patient's home regimen. PLAN FOR INPATIENT GLYCEMIC CONTROL: * Basal insulin * Lantus 16 units SQ today then re-evaluate 12/08/22 * Bolus insulin * NovoLog per scale ACHS or Q6hrs while NPO * Goal Range: Low 110 mg/dL - High 150 mg/dL * Correction Factor: 30 mg/dL/unit * Nutritional / Prandial insulin per carb ratio of 1 unit per 10 grams CHO consumed
--- NOTE | 2022-12-07 16:33 | Discharge Summary ---
Date of Service December 07, 2022 Admission HPI Per Admitting Provider 87yo male with PMHx significant for DM I (on insulin pump), HTN, Hypothyroidism, CKD, depression/anxiety presented for complaints of chest pain/L arm pain that started last evening. Patient evaluated in A4B, son at bedside. Reports having this similar pain reporting feeling like indigestion/gas discomfort that goes away typically on it's own, occasional similar symptoms 2-3x/year.. He reports this discomfort had been ongoing and not relieved since this morning when he really noticed it causing discomfort. He describes it has a "dull ache" to his L chest/pressure like sensation. He notes he took his typical aspirin 81mg this morning and was provided 4 baby aspirin by PCP this morning during visit when noting BP elevation and discussed if symptomatic from such, with patient reporting having chest discomfort and recommended he come to the ER. Son reports he came to pick him up and bring him over. Regarding prior indigestion symptoms, he denies being on any scheduled acid reducing medication/similar. BP improved from max 207/90 to 166/76 presently. Had his HCTZ discontinued recently due to persistent hypokalemia but reports continues on losartan/amlodipine. Some issues with constipation, reports not passing much gas. Does have +BS on exam. Also noting lump to his RUE, no erythema/warmth or trauma and states he just noticed it. Appears w/ possible biceps tendon rupture. He reports this is the re ason he went to PCP in the first place. Typically a pretty active leticia at baseline. No cardiac history Appears patient also newly taking care of his /caregiver 2nd to dementia over the past several months. Have been ?61 years, he does note that this has been an increase stress on him. EKG w/ NSR (sinus lilli on exam), LAD, does note Q wave septal leads c/w prior event. CXR w/ no acute process noted (fine crackles b/l on exam) No fever/chills, shortness of breath, nausea/vomiting. Hx COVID in 2021, has been vaccinated/boosted. Discussed admission for cardiac work-up/ECHO, trending of troponin. Full code. Discharge Data Allergies Allergy/AdvReac Type Severity Reaction Status Date / Time clonazepam Allergy Intermediate NAUSEA,HYPE Verified 12/06/22 12:35 R hydrocodone Allergy Mild NAUSEA Verified 12/06/22 12:35 meperidine [From Demerol] Allergy Hives Verified 12/07/22 08:20 Consultations 12/06/22 15:42 ED Decision to Admit Stat Ordered Studies 12/06/22 16:11 US soft tissue ext ltd Routine Hospital Course (1) Chest pain: Reports CP since last evening. Trop negative. EKG w/o ST depression/elevation, does note possible old infarct. DDx underlying CAD/angina vs HTN, cannot r/o anxiety component as now caring for his (dementia) Given 324mg ASA by PCP office before arriving to hospital, continue ASA 81mg daily Trop 3.8 on initial lab draw, trend ECHO to be obtained Nitro SL prn EKG w/ CP BP management Hydralazine added prn Lipid panel/A1c w/ AM labs TSH previously normal but elevated T4. Will repeat TSH/T4/T3 for further eval/adjustment as needed GI cocktail x1, place on scheduled pepcid -- monitor response Also reporting constipation/gas pains, will check KUB (+BS on exam) Fine crackles b/l, check covid/flu/rsv (already had covid, vaccinated and boosted, denies recent contacts/fever/chills) Heparin SQ for DVT prophylaxis Labs in AM If repeat trop again negative, will make NPO at midnight/stress testing for AM (2) Hypertension: Elevated on arrival, up to 200s/90, currently 166/76 Continue on losartan 100mg daily, amlodipine 10mg daily for now Was recently taken off his HCTZ due to persistent hypokalemia despite replacement (up to 2-3 20meq replacement w/ such) -Will add renin/blayne to labs to rule out other cause for HTN given hypokalemia ?primary aldosteronism -Pending, consider utilizing spironolactone for BP control Hydralazine available prn Monitor BP (3) 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, with long-term current use of insulin: A1c w/ AM labs as above, most recent value 7.1 Glu 220 on arrival Has insulin pump, BSG AC/HS ordered , can continue home insulin pump for now but if remains elevated will need to stop/utilize SSI while inpatient DM diet (4) Hypothyroidism: Most recent TSH wnl at 1.5, however appears T4 was elevated 1.5 Continue Synthroid 125mcg for now Will repeat TSH/T4/T3 for further eval (5) Depression with anxiety: not on SSRI, suspect would benefit on trazodone at night for sleep, continued (6) Lump of skin of right upper extremity: noted reason for visit to PCP this morning US for further eval, appears spontaneous biceps tendon rupture. Can reach out to ortho pending US but suspect nothing to do give age/etc but can reach out to interventionist to discuss (7) Constipation: KUB as above to eval constipation given reported issues miralax, senna/docusate, monitor for BM (8) Insulin pump in place: noted, in place Discharge Plan Discharge Items Patient Disposition: Home - Self-Care Reason For Visit: CHEST PAIN Discharge Diagnosis: 1. chest pain, no evidence of heart attack; negative (normal) stress test; normal echocardiogram. 2. right biceps muscle abnormality. Activity: Resume your previous activity Lifting: No more than 10 pounds Lifting Comment: with right arm Non-emergency contact: Primary Care Provider and Specialist Call non-emergency contact if: you have any medication questions and your symp toms worsen Follow-up/Referrals: Stefanie Pineda CRNP [Primary Care Provider] - 12/14/22 10:30 am Diet: Carb Count or DM1 and Heart Healthy Addtl Attending Provider Instructions: Mr Sosa, You were hospitalized due to left-sided chest discomfort. Blood work for the heart was negative - thus, there was no evidence of heart attack. Telemetry heart monitoring was normal. Echocardiogram showed normal heart function and healthy heart valves. You underwent a dobutamine (chemical) stress test and this also returned normal. Taken in sum all of your heart testing would suggest that your chest pain was likely not due to blocked arteries of the heart. You mentioned that nitroglycerin given in the ER made your chest discomfort go away. Nitroglycerin can relieve musculoskeletal chest pain as well as pain from your esophagus (spasm of the esophagus, etc). Thus, pain from a sore muscle or pain from spasm of your esophagus could have caused your symptoms. Since the pain lasted hours chest wall muscle pain would be more common. Finally, the last possibility for your pain could have been uncontrolled high blood pressure. Severely high blood pressures can cause symptoms in some individuals including chest pain. Fortunately your blood pressures did improve while here. During your stay we have made no changes to your regular medications. Please continue your baby aspirin (81mg) daily as previous. Please follow-up with your family doctor within 1 week for a recheck. If you have additional episodes of chest discomfort you would need to be re- evaluated in the emergency department at [facility]. You would potentially need additional testing if your pains returned. Please follow-up with [facility] for your right biceps problem. It is uncertain if there is a tear in the biceps tendon at this time. Until you see orthopedics please limit lifting with your right arm to about 10 pounds maximum. Return to [facility] if - * you develop recurrent chest pains/discomfort/tightness * you develop shortness of breath * you have severe nausea and/or vomiting * you have fever over 100 degrees * any other concerns It was our pleasure to care for you! Pending Studies at Discharge: No Stand-Alone Forms: My [facility] [place] [employer], Smoking Cessation Medications and DC Order Prescriptions: Continued (DME) Contour Next Test Strips strip See Dose Instructions .ROUTE .MEDSUPPLY Qty: 800 3RF Dose Instruction: As directed Rx Instructions: use 8 daily to test blood sugars E10.9 Glucagon Emergency Kit (human) 1 mg recon soln 1 mg IM PRN PRN (Reason: hypoglycemia) Qty: 2 5RF Rx Instructions: until response potassium chloride 20 mEq tablet extended release 40 meq PO DAILY Qty: 180 3RF Lantus U-100 Insulin 100 unit/mL solution See Rx Instructions .ROUTE .COMPLEX Qty: 10 3RF Dose Instruction: 20 units at bedtime in case of pump failure ; Rx Instructions: 20 units at bedtime in case of pump failure ; trazodone 50 mg tablet 50 mg PO HS Qty: 90 3RF Novolog U-100 Insulin aspart 100 unit/mL solution See Rx Instructions SQ DAILY Qty: 100 3RF Dose Instruction: SQ DAILY; Rx Instructions: use 100 units daily with insulin pump, Needs an additional bottle for priming pump losartan 100 mg tablet 100 mg PO QAM Qty: 90 3RF hydrochlorothiazide 25 mg tablet 25 mg PO DAILY Qty: 90 3RF Hold Instructions: hold for now levothyroxine [Synthroid] 125 mcg tablet 125 mcg PO QAM 90 Days Qty: 90 3RF dutasteride [Avodart] 0.5 mg capsule 0.5 mg PO DAILY Qty: 90 3RF silodosin 8 mg capsule 8 mg PO DAILY Qty: 90 3RF Rx Instructions: must administer with a meal/food multivitamin with iron-mineral PO DAILY amlodipine 5 mg tablet 10 mg PO DAILY aspirin [Aspir-Low] 81 mg Tablet,Delayed Release (Dr/Ec) 81 mg PO QAM cholecalciferol (vitamin D3) [Vitamin D3] 1,000 unit Tablet 1,000 unit PO QAM Discharge Orders: Discharge Order (Routine); Ordered 12/07/22 Ordered By: Cabrera Rosen/Other Patient Handouts: Managing Type 1 Diabetes, ED Chest Pain, Noncardiac Admission Data Admit Date/Time: 12/06/22 16:29 Attending Provider: Cabrera Martinez Admit Provider: Cabrera eDlgado Primary Care Provider: Stefanie Pineda Other Providers: Cabrera Delgado Coding Diagnoses Chest pain R07.9 Chest pain type: unspecified Hypertension I10 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
--- NOTE | 2022-12-08 06:08 | Electrocardiogram Report ---
Test Reason : Blood Pressure : / mmHG Vent. Rate : 071 BPM Atrial Rate : 071 BPM P-R Int : 160 ms QRS Dur : 084 ms QT Int : 408 ms P-R-T Axes : 063 -37 051 degrees QTc Int : 443 ms Normal sinus rhythm Left axis deviation Septal infarct , age undetermined Nonspecific ST abnormality Abnormal ECG When compared with ECG of 14-APR-2001 10:59, QRS axis Shifted left Confirmed by Ryan Mendoza ([id number]) on 12/08/2022 6:08:10 AM Referred By: Confirmed By:Ryan Mendoza
[2022-12-08] MEDS ORDERED: FAMOTIDINE 20 MG TAB PO SCH (09:00)
--- NOTE | 2022-12-10 06:07 | Electrocardiogram Report ---
Test Reason : Blood Pressure : / mmHG Vent. Rate : 076 BPM Atrial Rate : 076 BPM P-R Int : 146 ms QRS Dur : 084 ms QT Int : 414 ms P-R-T Axes : 056 -02 035 degrees QTc Int : 465 ms Sinus rhythm with Premature atrial complexes Otherwise normal ECG When compared with ECG of 06-DEC-2022 13:59, Premature atrial complexes are now Present Criteria for Septal infarct are no longer Present Confirmed by Ryan Mendoza ([id number]) on 12/10/2022 6:07:26 AM Referred By: REFERRED SELF Confirmed By:Ryan Mendoza
== END 2022-12-07 16:50 | disposition home or self-care (01) ==
LOC: ED 13:51 → EDINP 13:51 → SUATTDRO 16:29 → EDINP 16:53 → 2W 21:31